=== PATIENT | female | born 1930 | race Caucasian/White ===

== ENCOUNTER 2016-11-14 11:40 | Outpatient (CLI) | payer MEDICARE | END 2016-11-14 11:41 | disposition home or self-care (01) | LOC: NAV LABSP 11:40 | PROVIDERS: ATTEND Internal Medicine Gastroenterology | DX: K51.50 Left sided colitis without complications (principal) | CPT/HCPCS: 87324; 87449 ==

== ENCOUNTER 2019-05-02 05:39 | Emergency (ER) | payer MEDICARE ==
[2019-05-02] MEDS ORDERED: Losartan Potassium 50 MG TAB ONE (06:34)
[2019-05-02 06:40] LABS: #Basophils 0.1 thou/uL (0.0-0.2); #Eosinphils 0.8 thou/uL (0.0-0.7); #Lymphocytes 1.6 thou/uL (1.20-3.40); #Monocytes 0.6 thou/uL (0.11-0.59); #Neutrophils 2.9 thou/uL (1.40-6.50); %Basophils 1.1 % (0.0-1.0); %Eosinophils 13.2 % (0.0-10.0); %Lymphocytes 26.9 % (21.0-51.0); %Monocytes 10.3 % (0.0-10.0); %Neutrophils 48.6 % (42.0-75.0); Hemoglobin 13.7 g/dL (12.0-16.0); Mean Corpuscular HGB CONC 32.6 g/dL (32.0-36.0); Mean Corpuscular Hemoglobin 30.3 pg (27.0-31.0); Mean Platelet Volume 6.8 fL (7.4-10.4); Platelet Count 306 thou/uL (130-400); RBC Distribution Width 12.4 % (11.5-14.5); Red Blood Cell (RBC) Count 4.53 mill/uL (4.20-5.40)
[2019-05-02 06:46] LABS: ALT (SGPT) 9 U/L (8-55); AST (SGOT) 12 U/L (5-34); Albumin 4.1 g/dL (3.4-4.8); Alkaline Phosphatase 78 U/L (40-110); Anion Gap 15 mmol/L (10-20); BUN (Urea Nitrogen) 15 mg/dL (9.8-20.1); Bilirubin, Total 0.3 mg/dL (0.2-1.2); Calc. Creatinine Clearance 0 mL/min (70-130); Calcium 9.3 mg/dL (7.8-10.44); Carbon Dioxide 25 mmol/L (23-31); Chloride 106 mmol/L (98-107); Estimated GFR-MDRD 65; Globulin 2.6 g/dL (2.4-3.5); Glucose 105 mg/dL (83-110); Potassium 4.1 mmol/L (3.5-5.1); Protein, Total 6.7 g/dL (6.0-8.3); Sodium 142 mmol/L (136-145)
[2019-05-02 07:26] LABS: Bilirubin Negative (Negative); Blood, Urine Negative (Negative); Clarity Clear (Clear); Glucose, Urine (Dipstick) Negative (Negative); Leukocyte Negative (Negative); Nitrite Negative (Negative); Protein, Urine (Dipstick) Negative (Neg-Trace); Urobilinogen 0.2 mg/dL (Less than 2)
--- NOTE | 2019-05-02 08:52 | CT ---
PRELIMINARY REPORT/[facility]/EMERGENCY AFTER HOURS PROCEDURE EXAM: CT Head Without Intravenous Contrast. CLINICAL HISTORY: Pt has history of stroke; patient is dizzy and has elevated blood pressure due to n ot taking her meds TECHNIQUE: Axial computed tomography images of the head/brain without intravenous contrast. COMPARISON: None provided. 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 VENTRICLES: No hydrocephalus. ORBITS: The orbits are unremarkable. SINUSES AND MASTOIDS: Significant chronic ethmoid and sphenoid sinusitis. SOFT TISSUES: No significant facial or scalp soft tissue swelling evident. No radiopaque foreign body is seen. BONES: No acute skull fracture. IMPRESSION: No acute intracranial abnormality. Significant chronic ischemic changes. No priors Chronic sinusitis ELECTRONICALLY SIGNED BY: Heron Martin M.D. May 02, 2019 7:11:56 AM [facility] FINAL REPORT EMERGENT AFTER HOURS CT OF THE BRAIN WITHOUT CONTRAST: FINDINGS/IMPRESSION: I agree with the findings and impression given in the preliminary report per [facility]. No evidence of acute intracranial abnormality. POS: TEE
== END 2019-05-02 07:59 | disposition home or self-care (01) ==
LOC: NAV ERS 05:39
DX: G45.9 Transient cerebral ischemic attack, unspecified (principal); I10 Essential (primary) hypertension; E03.9 Hypothyroidism, unspecified; E78.5 Hyperlipidemia, unspecified; E11.9 Type 2 diabetes mellitus without complications; E78.00 Pure hypercholesterolemia, unspecified; K58.9 Irritable bowel syndrome, unspecified; Z87.891 Personal history of nicotine dependence; Z79.82 Long term (current) use of aspirin; Z79.899 Other long term (current) drug therapy
CPT/HCPCS: 36416; 70450; 80053; 81003; 84484; 85025; 93005

== ENCOUNTER 2020-09-27 16:59 | Inpatient (IN) | payer OTHER, MEDICARE ==
[2020-09-27] MEDS ORDERED: HumaLOG 300 UNITS/3 ML VIAL SC PRN ×2 (20:00)
[2020-09-27] MEDS ORDERED: Dextrose 5% in Water 1,000 ML IV PRN (20:00)
[2020-09-27] MEDS ORDERED: Dextrose 50% Abboject 50 ML SYRINGE IVP PRN (20:00)
[2020-09-27] MEDS: Gabapentin 100 MG CAP PO SCH (21:06)
[2020-09-27] MEDS: Ibuprofen 200 MG TAB PO SCH (21:06)
[2020-09-27] MEDS: Sulfameth/Trimethoprim DS 800-160mg TAB PO SCH (21:06)
[2020-09-27] MEDS: Simethicone Chewable 80 MG TAB PO PRN (21:07)
[2020-09-28] MEDS: Acetaminophen 500 MG TAB PO SCH ×4 (00:25→19:09)
[2020-09-28] MEDS: traMADol HCl 50 MG TAB PO SCH ×4 (00:25→19:10)
[2020-09-28] MEDS: Ibuprofen 200 MG TAB PO SCH ×3 (03:15→15:48)
[2020-09-28] MEDS: Levothyroxine Sodium 75 MCG TAB PO SCH (05:50)
[2020-09-28 06:13] LABS: Anion Gap 16 mmol/L (10-20); BUN (Urea Nitrogen) 25 mg/dL (9.8-20.1); Calc. Creatinine Clearance 25 mL/min (70-130); Calcium 7.9 mg/dL (7.8-10.44); Carbon Dioxide 19 mmol/L (23-31); Chloride 103 mmol/L (98-107); Glucose 82 mg/dL (83-110); Potassium 4.8 mmol/L (3.5-5.1); Sodium 133 mmol/L (136-145)
[2020-09-28 06:16] LABS: #Basophils 0.1 thou/uL (0.0-0.2); #Eosinphils 0.5 thou/uL (0.0-0.7); #Lymphocytes 1.2 thou/uL (1.20-3.40); #Monocytes 1.5 thou/uL (0.11-0.59); #Neutrophils 10.2 thou/uL (1.40-6.50); %Basophils 0.6 % (0.0-1.0); %Eosinophils 3.5 % (0.0-10.0); %Lymphocytes 8.6 % (21.0-51.0); %Monocytes 11.1 % (0.0-10.0); %Neutrophils 76.3 % (42.0-75.0); Hemoglobin 9.3 g/dL (12.0-16.0); Mean Corpuscular HGB CONC 30.5 g/dL (32.0-36.0); Mean Corpuscular Hemoglobin 29.3 pg (27.0-31.0); Mean Corpuscular Volume 96.3 fL (78.0-98.0); Mean Platelet Volume 5.6 fL (7.4-10.4); Platelet Count 384 thou/uL (130-400); RBC Distribution Width 14.6 % (11.5-14.5); Red Blood Cell (RBC) Count 3.17 mill/uL (4.20-5.40); White Blood Cell (WBC) Count 13.4 thou/uL (4.8-10.8)
[2020-09-28] MEDS: metFORMIN 500 MG TAB PO SCH (09:03)
[2020-09-28] MEDS: Aspirin 81 mg Enteric Coated Tablet PO SCH (09:04)
[2020-09-28] MEDS: Gabapentin 100 MG CAP PO SCH ×3 (09:04→21:07)
[2020-09-28] MEDS: Cholecalciferol 1,000 UNITS (25 MCG) TAB PO SCH (09:04)
[2020-09-28] MEDS: Losartan Potassium 50 MG TAB PO SCH (09:05)
[2020-09-28] MEDS: Hydrochlorothiazide 25 MG TAB PO SCH (09:05)
[2020-09-28] MEDS: Sulfameth/Trimethoprim DS 800-160mg TAB PO SCH ×2 (09:06→21:07)
[2020-09-28] MEDS: sulfaSALAzine 500 MG TAB PO SCH (09:06)
[2020-09-28] MEDS: Saccharomyces boulardii 250 MG CAP PO SCH (09:06)
[2020-09-28] MEDS: traMADol HCl 50 MG TAB PO PRN (23:26)
[2020-09-28] MEDS: Simethicone Chewable 80 MG TAB PO PRN (23:28)
[2020-09-29] MEDS: Ondansetron ODT 4 MG TAB PO PRN ×2 (02:43→18:23)
[2020-09-29] MEDS: Acetaminophen 500 MG TAB PO PRN ×2 (02:44→19:41)
[2020-09-29] MEDS: Levothyroxine Sodium 75 MCG TAB PO SCH (05:48)
[2020-09-29 06:01] LABS: Anion Gap 19 mmol/L (10-20)
[2020-09-29 06:04] LABS: Mean Corpuscular HGB CONC 31.1 g/dL (32.0-36.0); Mean Corpuscular Hemoglobin 29.6 pg (27.0-31.0); Mean Platelet Volume 5.4 fL (7.4-10.4); Platelet Count 442 thou/uL (130-400); RBC Distribution Width 14.7 % (11.5-14.5); Red Blood Cell (RBC) Count 3.39 mill/uL (4.20-5.40); White Blood Cell (WBC) Count 19.6 thou/uL (4.8-10.8)
[2020-09-29 06:33] LABS: BUN (Urea Nitrogen) 36 mg/dL (9.8-20.1); Calc. Creatinine Clearance 17 mL/min (70-130); Calcium 8.3 mg/dL (7.8-10.44); Carbon Dioxide 17 mmol/L (23-31); Chloride 99 mmol/L (98-107); Glucose 148 mg/dL (83-110); Sodium 130 mmol/L (136-145)
[2020-09-29 06:42] LABS: #Basophils 0.1 thou/uL (0.0-0.2); #Eosinphils 0.1 thou/uL (0.0-0.7); #Lymphocytes 1.1 thou/uL (1.20-3.40); #Monocytes 1.4 thou/uL (0.11-0.59); #Neutrophils 16.9 thou/uL (1.40-6.50); %Basophils 0.3 % (0.0-1.0); %Eosinophils 0.7 % (0.0-10.0); %Lymphocytes 5.4 % (21.0-51.0); %Monocytes 7.1 % (0.0-10.0); %Neutrophils 86.4 % (42.0-75.0)
[2020-09-29] MEDS ORDERED: Mag-Al Plus 1200 MG/1200 MG/120 MG/30 ML UDCUP PO SCH (12:15)
[2020-09-29] MEDS ORDERED: Sodium Chloride 0.9% 1,000 ML IV SCH (12:15)
[2020-09-29] MEDS: metFORMIN 500 MG TAB PO SCH (15:32)
[2020-09-29] MEDS: Gabapentin 100 MG CAP PO SCH ×3 (15:33→21:28)
[2020-09-29] MEDS: Hydrochlorothiazide 25 MG TAB PO SCH (15:33)
[2020-09-29] MEDS: Aspirin 81 mg Enteric Coated Tablet PO SCH (15:33)
[2020-09-29] MEDS: Cholecalciferol 1,000 UNITS (25 MCG) TAB PO SCH (15:33)
[2020-09-29] MEDS: Losartan Potassium 50 MG TAB PO SCH (15:34)
[2020-09-29] MEDS: Sulfameth/Trimethoprim DS 800-160mg TAB PO SCH ×2 (15:34→21:29)
[2020-09-29] MEDS: sulfaSALAzine 500 MG TAB PO SCH (15:34)
[2020-09-29] MEDS: Saccharomyces boulardii 250 MG CAP PO SCH (15:34)
[2020-09-29] MEDS: traMADol HCl 50 MG TAB PO PRN ×2 (16:07→21:29)
[2020-09-29] MEDS: Zolpidem Tartrate 5 MG TAB PO PRN (21:29)
[2020-09-30] MEDS: Levothyroxine Sodium 75 MCG TAB PO SCH (06:19)
[2020-09-30 08:19] LABS: Anion Gap 19 mmol/L (10-20); BUN (Urea Nitrogen) 49 mg/dL (9.8-20.1); Calc. Creatinine Clearance 13 mL/min (70-130); Calcium 8.2 mg/dL (7.8-10.44); Carbon Dioxide 17 mmol/L (23-31); Chloride 100 mmol/L (98-107); Glucose 136 mg/dL (83-110); Potassium 5.6 mmol/L (3.5-5.1); Sodium 130 mmol/L (136-145)
[2020-09-30] MEDS: Acetaminophen 500 MG TAB PO PRN ×2 (08:54→16:00)
[2020-09-30] MEDS: Saccharomyces boulardii 250 MG CAP PO SCH (09:02)
[2020-09-30] MEDS: Cholecalciferol 1,000 UNITS (25 MCG) TAB PO SCH (09:02)
[2020-09-30] MEDS: Aspirin 81 mg Enteric Coated Tablet PO SCH (09:02)
[2020-09-30] MEDS: traMADol HCl 50 MG TAB PO PRN ×2 (09:03→15:59)
[2020-09-30 09:11] LABS: Hemoglobin 10.5 g/dL (12.0-16.0); Mean Corpuscular HGB CONC 31.6 g/dL (32.0-36.0); Mean Corpuscular Volume 94.9 fL (78.0-98.0); RBC Distribution Width 14.6 % (11.5-14.5); White Blood Cell (WBC) Count 23.6 thou/uL (4.8-10.8)
[2020-09-30 09:12] LABS: #Neutrophils 20.4 thou/uL (1.40-6.50); %Lymphocytes 4.4 % (21.0-51.0); %Neutrophils 86.3 % (42.0-75.0); Manual Diff?? YES; Mean Platelet Volume 5.4 fL (7.4-10.4); Platelet Count 469 thou/uL (130-400)
[2020-09-30 09:13] LABS: #Basophils 0.1 thou/uL (0.0-0.2); #Monocytes 2.1 thou/uL (0.11-0.59)
[2020-09-30] MEDS: Sulfameth/Trimethoprim DS 800-160mg TAB PO SCH ×2 (09:27→21:15)
[2020-09-30] MEDS: Gabapentin 100 MG CAP PO SCH (09:27)
[2020-09-30] MEDS: Losartan Potassium 50 MG TAB PO SCH (09:28)
[2020-09-30] MEDS: metFORMIN 500 MG TAB PO SCH (09:28)
[2020-09-30] MEDS: sulfaSALAzine 500 MG TAB PO SCH (09:28)
[2020-09-30] MEDS: Hydrochlorothiazide 25 MG TAB PO SCH (09:29)
[2020-09-30 10:12] LABS: Band 4 % (5-11); Lymphocytes 7 % (21-51); MDiff Complete? YES; Monocytes 8 % (0-10); Neutrophil 81 % (42-75); Platelet Morphology Comment Appears Increased
[2020-09-30] MEDS: Ondansetron ODT 4 MG TAB PO PRN (13:02)
[2020-09-30] MEDS: Sodium Chloride 0.9% 1,000 ML IV SCH (15:06)
[2020-09-30] MEDS: Pantoprazole 40 MG VIAL IVP SCH (21:15)
[2020-09-30] MEDS: Sucralfate 1 GM TAB PO SCH (21:15)
[2020-10-01] MEDS: Sodium Chloride 0.9% 1,000 ML IV SCH ×2 (01:22→11:47)
[2020-10-01] MEDS: Levothyroxine Sodium 75 MCG TAB PO SCH (05:37)
[2020-10-01 06:13] VITALS: BMI 30.1
[2020-10-01] MEDS: Acetaminophen 500 MG TAB PO PRN ×2 (06:36→20:36)
[2020-10-01] MEDS: traMADol HCl 50 MG TAB PO PRN ×2 (06:37→20:38)
[2020-10-01] MEDS: Saccharomyces boulardii 250 MG CAP PO SCH (09:58)
[2020-10-01] MEDS: Cholecalciferol 1,000 UNITS (25 MCG) TAB PO SCH (09:59)
[2020-10-01] MEDS: sulfaSALAzine 500 MG TAB PO SCH (09:59)
[2020-10-01] MEDS: Sulfameth/Trimethoprim DS 800-160mg TAB PO SCH ×2 (10:00→20:36)
[2020-10-01] MEDS: Losartan Potassium 50 MG TAB PO SCH (10:00)
[2020-10-01] MEDS: Sucralfate 1 GM TAB PO SCH ×2 (10:00→20:36)
[2020-10-01] MEDS: Gabapentin 100 MG CAP PO SCH (10:01)
[2020-10-01] MEDS: Pantoprazole 40 MG VIAL IVP SCH ×2 (10:01→20:36)
[2020-10-01 10:02] LABS: Anion Gap 16 mmol/L (10-20); BUN (Urea Nitrogen) 62 mg/dL (9.8-20.1); Calc. Creatinine Clearance 12 mL/min (70-130); Calcium 7.6 mg/dL (7.8-10.44); Carbon Dioxide 17 mmol/L (23-31); Chloride 102 mmol/L (98-107); Glucose 98 mg/dL (83-110); Potassium 5.6 mmol/L (3.5-5.1); Sodium 129 mmol/L (136-145)
[2020-10-01] MEDS: Aspirin 81 mg Enteric Coated Tablet PO SCH (10:04)
[2020-10-01 10:18] LABS: Hemoglobin 8.5 g/dL (12.0-16.0); Mean Corpuscular HGB CONC 31.2 g/dL (32.0-36.0); Mean Corpuscular Hemoglobin 30.3 pg (27.0-31.0); Mean Corpuscular Volume 97.1 fL (78.0-98.0); Mean Platelet Volume 5.3 fL (7.4-10.4); Platelet Count 432 thou/uL (130-400); RBC Distribution Width 15.8 % (11.5-14.5); White Blood Cell (WBC) Count 24.3 thou/uL (4.8-10.8)
[2020-10-01 10:24] LABS: Band 3 % (5-11); Lymphocytes 4 % (21-51); MDiff Complete? YES; Monocytes 3 % (0-10); Neutrophil 90 % (42-75); Platelet Morphology Comment Appears Increased
[2020-10-01] MEDS ORDERED: Dextrose 5 % And 0.9 % NaCl 1,000 ML IV SCH (13:30)
[2020-10-01] MEDS ORDERED: Ventolin HFA Inhaler 60 PUFF INHALER INH PRN (20:41)
[2020-10-01] MEDS ORDERED: Furosemide 20 MG/2 ML VIAL SLOW IVP SCH (20:45)
[2020-10-01] MEDS: Zolpidem Tartrate 5 MG TAB PO PRN (21:28)
[2020-10-02] MEDS: Levothyroxine Sodium 75 MCG TAB PO SCH (05:25)
[2020-10-02] MEDS: Acetaminophen 500 MG TAB PO PRN (05:26)
[2020-10-02] MEDS: traMADol HCl 50 MG TAB PO PRN ×2 (05:28→21:40)
[2020-10-02 07:54] LABS: #Basophils 0.1 thou/uL (0.0-0.2); #Eosinphils 0.2 thou/uL (0.0-0.7); #Lymphocytes 0.8 thou/uL (1.20-3.40); #Monocytes 1.2 thou/uL (0.11-0.59); #Neutrophils 12.4 thou/uL (1.40-6.50); %Basophils 0.5 % (0.0-1.0); %Eosinophils 1.1 % (0.0-10.0); %Lymphocytes 5.4 % (21.0-51.0); %Monocytes 8.3 % (0.0-10.0); %Neutrophils 84.8 % (42.0-75.0); Hemoglobin 7.9 g/dL (12.0-16.0); Mean Corpuscular HGB CONC 30.6 g/dL (32.0-36.0); Mean Corpuscular Hemoglobin 29.3 pg (27.0-31.0); Mean Corpuscular Volume 95.9 fL (78.0-98.0); Mean Platelet Volume 5.1 fL (7.4-10.4); Platelet Count 390 thou/uL (130-400); RBC Distribution Width 15.7 % (11.5-14.5); Red Blood Cell (RBC) Count 2.71 mill/uL (4.20-5.40); White Blood Cell (WBC) Count 14.6 thou/uL (4.8-10.8)
[2020-10-02 07:56] LABS: Anion Gap 13 mmol/L (10-20)
[2020-10-02 07:58] LABS: Calc. Creatinine Clearance 27 mL/min (70-130)
[2020-10-02 07:59] LABS: BUN (Urea Nitrogen) 42 mg/dL (9.8-20.1); Calcium 7.8 mg/dL (7.8-10.44); Carbon Dioxide 18 mmol/L (23-31); Chloride 107 mmol/L (98-107); Glucose 103 mg/dL (83-110); Potassium 4.9 mmol/L (3.5-5.1); Sodium 133 mmol/L (136-145)
[2020-10-02] MEDS: Cholecalciferol 1,000 UNITS (25 MCG) TAB PO SCH (09:36)
[2020-10-02] MEDS: Gabapentin 100 MG CAP PO SCH (09:36)
[2020-10-02] MEDS: Aspirin 81 mg Enteric Coated Tablet PO SCH (09:36)
[2020-10-02] MEDS: Pantoprazole 40 MG VIAL IVP SCH ×2 (09:37→21:42)
[2020-10-02] MEDS: Losartan Potassium 50 MG TAB PO SCH (09:37)
[2020-10-02] MEDS: Saccharomyces boulardii 250 MG CAP PO SCH (09:38)
[2020-10-02] MEDS: Sulfameth/Trimethoprim DS 800-160mg TAB PO SCH ×2 (09:38→21:40)
[2020-10-02] MEDS: sulfaSALAzine 500 MG TAB PO SCH (09:38)
[2020-10-02] MEDS: Sucralfate 1 GM TAB PO SCH ×2 (09:38→21:40)
[2020-10-02] MEDS ORDERED: Sodium Chloride 0.9% 1,000 ML IV SCH (22:15)
[2020-10-02] MEDS ORDERED: Nystatin 500,000 UNITS/5 ML UDCUP SSW SCH ×2 (22:30→23:59)
[2020-10-02] MEDS: Zolpidem Tartrate 5 MG TAB PO PRN (22:52)
[2020-10-03] MEDS: Levothyroxine Sodium 75 MCG TAB PO SCH (05:29)
[2020-10-03] MEDS: Nystatin 500,000 UNITS/5 ML UDCUP SSW SCH ×2 (05:29→13:10)
[2020-10-03 07:52] LABS: #Basophils 0.1 thou/uL (0.0-0.2); #Eosinphils 0.1 thou/uL (0.0-0.7); #Lymphocytes 1.5 thou/uL (1.20-3.40); #Monocytes 1.3 thou/uL (0.11-0.59); #Neutrophils 13.9 thou/uL (1.40-6.50); %Basophils 0.8 % (0.0-1.0); %Eosinophils 0.8 % (0.0-10.0); %Lymphocytes 8.9 % (21.0-51.0); %Monocytes 7.8 % (0.0-10.0); %Neutrophils 81.7 % (42.0-75.0); Mean Corpuscular Hemoglobin 30.2 pg (27.0-31.0); Mean Platelet Volume 5.3 fL (7.4-10.4); Platelet Count 418 thou/uL (130-400); RBC Distribution Width 15.6 % (11.5-14.5); Red Blood Cell (RBC) Count 1.97 mill/uL (4.20-5.40)
[2020-10-03 08:04] LABS: Anion Gap 13 mmol/L (10-20); BUN (Urea Nitrogen) 43 mg/dL (9.8-20.1); Calc. Creatinine Clearance 54 mL/min (70-130); Calcium 7.6 mg/dL (7.8-10.44); Carbon Dioxide 19 mmol/L (23-31); Chloride 109 mmol/L (98-107); Glucose 152 mg/dL (83-110); Sodium 136 mmol/L (136-145)
[2020-10-03] MEDS: Cholecalciferol 1,000 UNITS (25 MCG) TAB PO SCH (09:11)
[2020-10-03] MEDS: Gabapentin 100 MG CAP PO SCH (09:11)
[2020-10-03] MEDS: Aspirin 81 mg Enteric Coated Tablet PO SCH (09:11)
[2020-10-03] MEDS: Losartan Potassium 50 MG TAB PO SCH (09:12)
[2020-10-03] MEDS: Saccharomyces boulardii 250 MG CAP PO SCH (09:13)
[2020-10-03] MEDS: Sulfameth/Trimethoprim DS 800-160mg TAB PO SCH (09:13)
[2020-10-03] MEDS: sulfaSALAzine 500 MG TAB PO SCH (09:13)
[2020-10-03] MEDS: Pantoprazole 40 MG VIAL IVP SCH (09:13)
[2020-10-03] MEDS: Sucralfate 1 GM TAB PO SCH (09:13)
[2020-10-03 14:11] VITALS: BP 107/65; TEMP 97.6
== END 2020-10-03 14:10 | disposition home or self-care (01) | DRG 560 ==
LOC: NAV ACUTE 19:13
PROVIDERS: ADMIT Family Medicine; ATTEND Family Medicine
DX: S22.49XD Multiple fractures of ribs, unspecified side, subsequent encounter for fracture with routine healing (principal); N17.9 Acute kidney failure, unspecified; E87.1 Hypo-osmolality and hyponatremia; K51.90 Ulcerative colitis, unspecified, without complications; R33.9 Retention of urine, unspecified; E87.5 Hyperkalemia; R13.10 Dysphagia, unspecified; E11.9 Type 2 diabetes mellitus without complications; D64.9 Anemia, unspecified; D72.829 Elevated white blood cell count, unspecified; R53.1 Weakness; E03.9 Hypothyroidism, unspecified; R09.89 Other specified symptoms and signs involving the circulatory and respiratory systems; I10 Essential (primary) hypertension; K21.9 Gastro-esophageal reflux disease without esophagitis; S30.1XXD Contusion of abdominal wall, subsequent encounter; S22.20XD Unspecified fracture of sternum, subsequent encounter for fracture with routine healing; V89.2XXD Person injured in unspecified motor-vehicle accident, traffic, subsequent encounter; Z79.82 Long term (current) use of aspirin; Z79.84 Long term (current) use of oral hypoglycemic drugs; Z79.899 Other long term (current) drug therapy; Z90.710 Acquired absence of both cervix and uterus; Z90.89 Acquired absence of other organs; Z98.890 Other specified postprocedural states
CPT/HCPCS: 36415; 36416; 36430; 71045; 80048; 85025; 86850; 86900; 86901; 87086; 94640; C9113; J1940; J7042; J7050; J7620; P9016; Q0162

== ENCOUNTER 2020-10-11 18:09 | Inpatient (IN) | payer MEDICARE ==
[2020-10-11] MEDS ORDERED: Nystatin 500,000 UNITS/5 ML UDCUP SSW PRN (19:51)
[2020-10-11] MEDS ORDERED: Ondansetron ODT 4 MG TAB PO PRN (19:52)
[2020-10-11] MEDS ORDERED: Simethicone Chewable 80 MG TAB PO PRN (19:53)
[2020-10-11] MEDS ORDERED: Zolpidem Tartrate 5 MG TAB PO PRN (19:53)
[2020-10-11] MEDS ORDERED: traMADol HCl 50 MG TAB PO PRN (19:53)
[2020-10-11] MEDS ORDERED: Dextrose 50% Abboject 50 ML SYRINGE IVP PRN ×2 (20:00→21:15)
[2020-10-11] MEDS ORDERED: Dextrose 5% in Water 1,000 ML IV PRN ×2 (20:00→21:15)
[2020-10-11] MEDS: Sucralfate 1 GM TAB PO SCH (20:37)
[2020-10-11] MEDS: Amiodarone 200 MG TAB PO SCH (20:37)
[2020-10-11] MEDS ORDERED: MESALAMINE 800 MG PO SCH (21:00)
[2020-10-11] MEDS ORDERED: HumaLOG 300 UNITS/3 ML VIAL SC PRN (21:15)
[2020-10-11] MEDS: Melatonin 3 MG TAB PO PRN (21:55)
[2020-10-11] MEDS: MESALAMINE 400 MG PO SCH (22:22)
[2020-10-11] MEDS: MESALAMINE 1000 MG PR SCH (22:23)
[2020-10-12] MEDS: Acetaminophen 500 MG TAB PO SCH ×5 (01:29→23:20)
[2020-10-12] MEDS: Levothyroxine Sodium 100 MCG TAB PO SCH (05:28)
[2020-10-12 08:08] LABS: #Basophils 0.1 thou/uL (0.0-0.2); #Eosinphils 0.2 thou/uL (0.0-0.7); #Lymphocytes 1.8 thou/uL (1.20-3.40); #Monocytes 0.8 thou/uL (0.11-0.59); #Neutrophils 3.9 thou/uL (1.40-6.50); %Basophils 1.4 % (0.0-1.0); %Eosinophils 3.3 % (0.0-10.0); %Lymphocytes 26.3 % (21.0-51.0); %Monocytes 11.7 % (0.0-10.0); %Neutrophils 57.3 % (42.0-75.0); Hemoglobin 8.6 g/dL (12.0-16.0); Mean Corpuscular HGB CONC 29.1 g/dL (32.0-36.0); Mean Corpuscular Hemoglobin 28.7 pg (27.0-31.0); Mean Corpuscular Volume 98.6 fL (78.0-98.0); Mean Platelet Volume 5.2 fL (7.4-10.4); Platelet Count 445 thou/uL (130-400); RBC Distribution Width 18.1 % (11.5-14.5); Red Blood Cell (RBC) Count 2.98 mill/uL (4.20-5.40); White Blood Cell (WBC) Count 6.7 thou/uL (4.8-10.8)
[2020-10-12 08:18] LABS: ALT (SGPT) 7 U/L (8-55); AST (SGOT) 12 U/L (5-34); Albumin 2.7 g/dL (3.4-4.8); Alkaline Phosphatase 99 U/L (40-110); Anion Gap 13 mmol/L (10-20); BUN (Urea Nitrogen) 15 mg/dL (9.8-20.1); Bilirubin, Total 0.6 mg/dL (0.2-1.2); Calc. Creatinine Clearance 60 mL/min (70-130); Calcium 7.9 mg/dL (7.8-10.44); Carbon Dioxide 24 mmol/L (23-31); Chloride 109 mmol/L (98-107); Globulin 2.7 g/dL (2.4-3.5); Glucose 104 mg/dL (83-110); Potassium 3.7 mmol/L (3.5-5.1); Protein, Total 5.4 g/dL (5.8-8.1); Sodium 142 mmol/L (136-145)
[2020-10-12] MEDS: Amlodipine 5 MG TAB PO SCH (08:35)
[2020-10-12] MEDS: Amiodarone 200 MG TAB PO SCH ×2 (08:35→20:45)
[2020-10-12] MEDS: Cholecalciferol 1,000 UNITS (25 MCG) TAB PO SCH (08:36)
[2020-10-12] MEDS: Aspirin 81 mg Enteric Coated Tablet PO SCH (08:36)
[2020-10-12] MEDS: MESALAMINE 400 MG PO SCH ×2 (08:37→15:29)
[2020-10-12] MEDS: Lidocaine 5% Patch TD SCH (08:37)
[2020-10-12] MEDS: Losartan Potassium 50 MG TAB PO SCH (08:37)
[2020-10-12] MEDS: Furosemide 20 MG TAB PO SCH (08:37)
[2020-10-12] MEDS: Sucralfate 1 GM TAB PO SCH ×2 (08:38→20:45)
[2020-10-12] MEDS: MESALAMINE 1000 MG PR SCH (08:38)
[2020-10-12] MEDS: Saccharomyces boulardii 250 MG CAP PO SCH (08:38)
[2020-10-12] MEDS ORDERED: sulfaSALAzine 500 MG TAB PO SCH (09:00)
[2020-10-12] MEDS ORDERED: MESALAMINE 1000 MG PR SCH (15:30)
[2020-10-12] MEDS ORDERED: Sodium Chloride 0.65% Nasal 44 ML BOT EA NARE PRN (16:21)
[2020-10-12] MEDS ORDERED: Calcium Carbonate 500 MG ChewTAB PO PRN (16:21)
[2020-10-12] MEDS ORDERED: Benzonatate 100 MG CAP PO PRN (16:21)
[2020-10-12] MEDS ORDERED: Bisacodyl 10 MG SUPP PR PRN (16:21)
[2020-10-12] MEDS ORDERED: cloNIDine 0.1 MG TAB PO PRN (16:21)
[2020-10-12] MEDS ORDERED: Cepastat Lozenges 1 LOZ PO PRN (16:21)
[2020-10-12] MEDS ORDERED: Bisacodyl 5 MG TAB PO PRN (16:21)
[2020-10-12] MEDS ORDERED: Senokot S 8.6-50 MG TAB PO PRN (16:21)
[2020-10-12] MEDS ORDERED: Loperamide HCl 2 MG CAP PO PRN ×2 (16:21)
[2020-10-12] MEDS: Mesalamine DR 400 mg Capsule PO SCH (20:43)
[2020-10-12] MEDS: Mesalamine 1000 MG Suppository PR SCH (20:44)
[2020-10-12] MEDS: LIDOCAINE Patch Removal TOP SCH (20:46)
[2020-10-12] MEDS ORDERED: MESALAMINE 800 MG PO SCH (21:00)
[2020-10-12] MEDS: Melatonin 3 MG TAB PO PRN (21:36)
[2020-10-13] MEDS: Acetaminophen 500 MG TAB PO SCH ×4 (05:11→23:05)
[2020-10-13] MEDS: Levothyroxine Sodium 100 MCG TAB PO SCH (05:12)
[2020-10-13] MEDS: Lidocaine 5% Patch TD SCH (08:51)
[2020-10-13] MEDS: Saccharomyces boulardii 250 MG CAP PO SCH (08:51)
[2020-10-13] MEDS: Cholecalciferol 1,000 UNITS (25 MCG) TAB PO SCH (08:51)
[2020-10-13] MEDS: Sucralfate 1 GM TAB PO SCH ×2 (08:52→20:30)
[2020-10-13] MEDS: Amlodipine 5 MG TAB PO SCH (08:52)
[2020-10-13] MEDS: Aspirin 81 mg Enteric Coated Tablet PO SCH (08:52)
[2020-10-13] MEDS: Amiodarone 200 MG TAB PO SCH ×2 (08:52→20:30)
[2020-10-13] MEDS: Losartan Potassium 50 MG TAB PO SCH (08:52)
[2020-10-13] MEDS: Furosemide 20 MG TAB PO SCH (08:52)
[2020-10-13] MEDS: Mesalamine 1000 MG Suppository PR SCH ×2 (08:53→20:27)
[2020-10-13] MEDS: Mesalamine DR 400 mg Capsule PO SCH ×3 (08:53→20:29)
[2020-10-13] MEDS: Melatonin 3 MG TAB PO PRN (20:29)
[2020-10-13] MEDS: LIDOCAINE Patch Removal TOP SCH (20:30)
[2020-10-14] MEDS: Acetaminophen 500 MG TAB PO SCH ×4 (05:50→22:50)
[2020-10-14] MEDS: Levothyroxine Sodium 100 MCG TAB PO SCH (05:51)
[2020-10-14 05:55] LABS: #Basophils 0.1 thou/uL (0.0-0.2); #Eosinphils 0.2 thou/uL (0.0-0.7); #Lymphocytes 2.1 thou/uL (1.20-3.40); #Monocytes 0.7 thou/uL (0.11-0.59); #Neutrophils 2.9 thou/uL (1.40-6.50); %Basophils 0.9 % (0.0-1.0); %Eosinophils 2.6 % (0.0-10.0); %Lymphocytes 35.8 % (21.0-51.0); %Neutrophils 48.7 % (42.0-75.0); Anisocytosis SLIGHT = 6-15 cells (100X) (0-5/hpf); Hemoglobin 8.6 g/dL (12.0-16.0); Hypochromia SLIGHT = 6-15 cells (100X) (0-5/hpf); MDiff Complete? YES; Mean Corpuscular HGB CONC 28.2 g/dL (32.0-36.0); Mean Corpuscular Hemoglobin 27.8 pg (27.0-31.0); Mean Corpuscular Volume 98.6 fL (78.0-98.0); Mean Platelet Volume 5.4 fL (7.4-10.4); Microcytosis SLIGHT = 6-15 cells (100X) (0-5/hpf); Platelet Count 427 thou/uL (130-400); Platelet Morphology Comment Appears Adequate; Polychromasia SLIGHT = 2-3 cells (100X) (0-2/hpf); RBC Distribution Width 18.2 % (11.5-14.5); Red Blood Cell (RBC) Count 3.08 mill/uL (4.20-5.40); White Blood Cell (WBC) Count 5.9 thou/uL (4.8-10.8)
[2020-10-14 05:56] LABS: Anion Gap 11 mmol/L (10-20); BUN (Urea Nitrogen) 19 mg/dL (9.8-20.1); Calc. Creatinine Clearance 57 mL/min (70-130); Calcium 7.9 mg/dL (7.8-10.44); Carbon Dioxide 25 mmol/L (23-31); Chloride 109 mmol/L (98-107); Glucose 102 mg/dL (83-110); Potassium 3.4 mmol/L (3.5-5.1); Sodium 142 mmol/L (136-145)
[2020-10-14] MEDS: Sucralfate 1 GM TAB PO SCH ×2 (09:33→20:52)
[2020-10-14] MEDS: Lidocaine 5% Patch TD SCH (09:33)
[2020-10-14] MEDS: Mesalamine DR 400 mg Capsule PO SCH ×3 (09:33→20:52)
[2020-10-14] MEDS: Losartan Potassium 50 MG TAB PO SCH (09:33)
[2020-10-14] MEDS: Amiodarone 200 MG TAB PO SCH ×2 (09:34→20:52)
[2020-10-14] MEDS: Aspirin 81 mg Enteric Coated Tablet PO SCH (09:34)
[2020-10-14] MEDS: Amlodipine 5 MG TAB PO SCH (09:34)
[2020-10-14] MEDS: Cholecalciferol 1,000 UNITS (25 MCG) TAB PO SCH (09:34)
[2020-10-14] MEDS: Mesalamine 1000 MG Suppository PR SCH ×2 (09:34→20:51)
[2020-10-14] MEDS: Furosemide 20 MG TAB PO SCH (09:34)
[2020-10-14] MEDS: Saccharomyces boulardii 250 MG CAP PO SCH (09:41)
[2020-10-14] MEDS: HumaLOG 300 UNITS/3 ML VIAL SC PRN (11:43)
[2020-10-14] MEDS: Melatonin 3 MG TAB PO PRN (20:52)
[2020-10-14] MEDS: LIDOCAINE Patch Removal TOP SCH (20:52)
[2020-10-15] MEDS: Levothyroxine Sodium 100 MCG TAB PO SCH (05:25)
[2020-10-15] MEDS: Acetaminophen 500 MG TAB PO SCH ×3 (05:26→16:39)
[2020-10-15] MEDS: Lidocaine 5% Patch TD SCH (09:19)
[2020-10-15] MEDS: Cholecalciferol 1,000 UNITS (25 MCG) TAB PO SCH (09:20)
[2020-10-15] MEDS: Saccharomyces boulardii 250 MG CAP PO SCH (09:20)
[2020-10-15] MEDS: Mesalamine DR 400 mg Capsule PO SCH ×3 (09:20→20:56)
[2020-10-15] MEDS: Amlodipine 5 MG TAB PO SCH (09:20)
[2020-10-15] MEDS: Losartan Potassium 50 MG TAB PO SCH (09:20)
[2020-10-15] MEDS: Sucralfate 1 GM TAB PO SCH ×2 (09:20→20:57)
[2020-10-15] MEDS: Aspirin 81 mg Enteric Coated Tablet PO SCH (09:21)
[2020-10-15] MEDS: Furosemide 20 MG TAB PO SCH (09:21)
[2020-10-15] MEDS: Mesalamine 1000 MG Suppository PR SCH ×2 (09:21→20:56)
[2020-10-15] MEDS: Amiodarone 200 MG TAB PO SCH ×2 (09:21→20:57)
[2020-10-15] MEDS: HumaLOG 300 UNITS/3 ML VIAL SC PRN (12:19)
[2020-10-15] MEDS: Melatonin 3 MG TAB PO PRN (20:56)
[2020-10-15] MEDS: LIDOCAINE Patch Removal TOP SCH (20:57)
[2020-10-16] MEDS: Levothyroxine Sodium 100 MCG TAB PO SCH (06:03)
[2020-10-16] MEDS: Acetaminophen 500 MG TAB PO SCH ×4 (06:04→18:05)
[2020-10-16] MEDS: Amlodipine 5 MG TAB PO SCH (09:46)
[2020-10-16] MEDS: Cholecalciferol 1,000 UNITS (25 MCG) TAB PO SCH (09:46)
[2020-10-16] MEDS: Aspirin 81 mg Enteric Coated Tablet PO SCH (09:46)
[2020-10-16] MEDS: Amiodarone 200 MG TAB PO SCH ×2 (09:46→20:13)
[2020-10-16] MEDS: Lidocaine 5% Patch TD SCH (09:47)
[2020-10-16] MEDS: Furosemide 20 MG TAB PO SCH (09:47)
[2020-10-16] MEDS: Losartan Potassium 50 MG TAB PO SCH (09:47)
[2020-10-16] MEDS: Mesalamine DR 400 mg Capsule PO SCH ×3 (09:47→20:13)
[2020-10-16] MEDS: Saccharomyces boulardii 250 MG CAP PO SCH (09:48)
[2020-10-16] MEDS: Sucralfate 1 GM TAB PO SCH ×2 (09:48→20:14)
[2020-10-16] MEDS: Mesalamine 1000 MG Suppository PR SCH ×2 (09:48→20:13)
[2020-10-16] MEDS: LIDOCAINE Patch Removal TOP SCH (20:14)
[2020-10-16] MEDS: Melatonin 3 MG TAB PO PRN (20:14)
[2020-10-17] MEDS: Acetaminophen 500 MG TAB PO SCH ×5 (01:43→23:16)
[2020-10-17] MEDS: Levothyroxine Sodium 100 MCG TAB PO SCH (05:41)
[2020-10-17] MEDS: Aspirin 81 mg Enteric Coated Tablet PO SCH (09:03)
[2020-10-17] MEDS: Cholecalciferol 1,000 UNITS (25 MCG) TAB PO SCH (09:03)
[2020-10-17] MEDS: Amiodarone 200 MG TAB PO SCH ×2 (09:03→20:24)
[2020-10-17] MEDS: Amlodipine 5 MG TAB PO SCH (09:03)
[2020-10-17] MEDS: Furosemide 20 MG TAB PO SCH (09:04)
[2020-10-17] MEDS: Losartan Potassium 50 MG TAB PO SCH (09:04)
[2020-10-17] MEDS: Lidocaine 5% Patch TD SCH (09:04)
[2020-10-17] MEDS: Mesalamine 1000 MG Suppository PR SCH ×2 (09:05→20:26)
[2020-10-17] MEDS: Saccharomyces boulardii 250 MG CAP PO SCH (09:05)
[2020-10-17] MEDS: Mesalamine DR 400 mg Capsule PO SCH ×3 (09:05→20:26)
[2020-10-17] MEDS: Sucralfate 1 GM TAB PO SCH ×2 (09:05→20:24)
[2020-10-17] MEDS: Artificial Tear Sol 15 ML BOT EA EYE SCH ×2 (15:26→20:23)
[2020-10-17] MEDS: LIDOCAINE Patch Removal TOP SCH (20:26)
[2020-10-18] MEDS: Acetaminophen 500 MG TAB PO SCH ×4 (05:53→23:17)
[2020-10-18] MEDS: Levothyroxine Sodium 100 MCG TAB PO SCH (05:54)
[2020-10-18] MEDS: Aspirin 81 mg Enteric Coated Tablet PO SCH (08:43)
[2020-10-18] MEDS: Saccharomyces boulardii 250 MG CAP PO SCH (08:43)
[2020-10-18] MEDS: Sucralfate 1 GM TAB PO SCH ×2 (08:43→20:31)
[2020-10-18] MEDS: Amiodarone 200 MG TAB PO SCH ×2 (08:44→20:31)
[2020-10-18] MEDS: Amlodipine 5 MG TAB PO SCH (08:44)
[2020-10-18] MEDS: Furosemide 20 MG TAB PO SCH (08:44)
[2020-10-18] MEDS: Losartan Potassium 50 MG TAB PO SCH (08:44)
[2020-10-18] MEDS: Cholecalciferol 1,000 UNITS (25 MCG) TAB PO SCH (08:45)
[2020-10-18] MEDS: Lidocaine 5% Patch TD SCH (08:46)
[2020-10-18] MEDS: Artificial Tear Sol 15 ML BOT EA EYE SCH ×3 (08:46→20:30)
[2020-10-18] MEDS: Mesalamine 1000 MG Suppository PR SCH ×2 (08:47→20:33)
[2020-10-18] MEDS: Mesalamine DR 400 mg Capsule PO SCH ×3 (08:47→20:30)
[2020-10-18] MEDS: Melatonin 3 MG TAB PO PRN (20:31)
[2020-10-18] MEDS: LIDOCAINE Patch Removal TOP SCH (20:35)
[2020-10-19] MEDS: Acetaminophen 500 MG TAB PO SCH ×3 (05:10→17:17)
[2020-10-19] MEDS: Levothyroxine Sodium 100 MCG TAB PO SCH (05:11)
[2020-10-19] MEDS: Furosemide 20 MG TAB PO SCH (09:18)
[2020-10-19] MEDS: Sucralfate 1 GM TAB PO SCH ×2 (09:18→21:50)
[2020-10-19] MEDS: Amiodarone 200 MG TAB PO SCH ×2 (09:19→21:51)
[2020-10-19] MEDS: Aspirin 81 mg Enteric Coated Tablet PO SCH (09:19)
[2020-10-19] MEDS: Losartan Potassium 50 MG TAB PO SCH (09:19)
[2020-10-19] MEDS: Cholecalciferol 1,000 UNITS (25 MCG) TAB PO SCH (09:19)
[2020-10-19] MEDS: Saccharomyces boulardii 250 MG CAP PO SCH (09:20)
[2020-10-19] MEDS: Amlodipine 5 MG TAB PO SCH (09:20)
[2020-10-19] MEDS: Artificial Tear Sol 15 ML BOT EA EYE SCH ×3 (09:21→21:50)
[2020-10-19] MEDS: Lidocaine 5% Patch TD SCH (09:23)
[2020-10-19] MEDS: Mesalamine 1000 MG Suppository PR SCH ×2 (09:24→21:51)
[2020-10-19] MEDS: Mesalamine DR 400 mg Capsule PO SCH ×3 (09:25→21:51)
[2020-10-19] MEDS: Melatonin 3 MG TAB PO PRN (21:50)
[2020-10-19] MEDS: LIDOCAINE Patch Removal TOP SCH (22:38)
[2020-10-20] MEDS: Acetaminophen 500 MG TAB PO SCH ×5 (01:00→23:38)
[2020-10-20] MEDS: Levothyroxine Sodium 100 MCG TAB PO SCH (05:46)
[2020-10-20] MEDS: Lidocaine 5% Patch TD SCH (11:55)
[2020-10-20] MEDS: Artificial Tear Sol 15 ML BOT EA EYE SCH ×3 (11:55→21:29)
[2020-10-20] MEDS: Losartan Potassium 50 MG TAB PO SCH (11:55)
[2020-10-20] MEDS: Amlodipine 5 MG TAB PO SCH (11:55)
[2020-10-20] MEDS: Aspirin 81 mg Enteric Coated Tablet PO SCH (11:55)
[2020-10-20] MEDS: Cholecalciferol 1,000 UNITS (25 MCG) TAB PO SCH (11:55)
[2020-10-20] MEDS: Amiodarone 200 MG TAB PO SCH ×2 (11:55→21:29)
[2020-10-20] MEDS: Furosemide 20 MG TAB PO SCH (11:55)
[2020-10-20] MEDS: Saccharomyces boulardii 250 MG CAP PO SCH (11:56)
[2020-10-20] MEDS: Mesalamine DR 400 mg Capsule PO SCH ×3 (11:56→22:01)
[2020-10-20] MEDS: Mesalamine 1000 MG Suppository PR SCH ×2 (11:56→21:29)
[2020-10-20] MEDS: Sucralfate 1 GM TAB PO SCH ×2 (11:56→21:28)
[2020-10-20] MEDS: HumaLOG 300 UNITS/3 ML VIAL SC PRN (17:55)
[2020-10-20] MEDS: LIDOCAINE Patch Removal TOP SCH (21:29)
[2020-10-20] MEDS: Melatonin 3 MG TAB PO PRN (21:31)
[2020-10-21] MEDS: Levothyroxine Sodium 100 MCG TAB PO SCH (05:59)
[2020-10-21] MEDS: Acetaminophen 500 MG TAB PO SCH ×4 (05:59→23:31)
[2020-10-21] MEDS: Amiodarone 200 MG TAB PO SCH ×2 (08:22→21:07)
[2020-10-21] MEDS: Amlodipine 5 MG TAB PO SCH (08:22)
[2020-10-21] MEDS: Cholecalciferol 1,000 UNITS (25 MCG) TAB PO SCH (08:23)
[2020-10-21] MEDS: Aspirin 81 mg Enteric Coated Tablet PO SCH (08:23)
[2020-10-21] MEDS: Artificial Tear Sol 15 ML BOT EA EYE SCH ×3 (08:23→21:08)
[2020-10-21] MEDS: Lidocaine 5% Patch TD SCH (08:24)
[2020-10-21] MEDS: Furosemide 20 MG TAB PO SCH (08:24)
[2020-10-21] MEDS: Mesalamine DR 400 mg Capsule PO SCH ×3 (08:25→21:07)
[2020-10-21] MEDS: Losartan Potassium 50 MG TAB PO SCH (08:25)
[2020-10-21] MEDS: Mesalamine 1000 MG Suppository PR SCH ×2 (08:26→21:09)
[2020-10-21] MEDS: Saccharomyces boulardii 250 MG CAP PO SCH (08:26)
[2020-10-21] MEDS: Sucralfate 1 GM TAB PO SCH ×2 (08:26→21:07)
[2020-10-21] MEDS: LIDOCAINE Patch Removal TOP SCH (21:09)
[2020-10-21] MEDS: Melatonin 3 MG TAB PO PRN (21:33)
[2020-10-22] MEDS: Acetaminophen 500 MG TAB PO SCH ×4 (05:48→23:51)
[2020-10-22] MEDS: Levothyroxine Sodium 100 MCG TAB PO SCH (05:49)
[2020-10-22 06:16] VITALS: BMI 26.4
[2020-10-22] MEDS: Amlodipine 5 MG TAB PO SCH (08:39)
[2020-10-22] MEDS: Cholecalciferol 1,000 UNITS (25 MCG) TAB PO SCH (08:40)
[2020-10-22] MEDS: Artificial Tear Sol 15 ML BOT EA EYE SCH ×3 (08:40→21:17)
[2020-10-22] MEDS: Aspirin 81 mg Enteric Coated Tablet PO SCH (08:40)
[2020-10-22] MEDS: Furosemide 20 MG TAB PO SCH (08:40)
[2020-10-22] MEDS: Mesalamine DR 400 mg Capsule PO SCH ×3 (08:41→21:18)
[2020-10-22] MEDS: Lidocaine 5% Patch TD SCH (08:41)
[2020-10-22] MEDS: Losartan Potassium 50 MG TAB PO SCH (08:41)
[2020-10-22] MEDS: Sucralfate 1 GM TAB PO SCH ×2 (08:42→21:12)
[2020-10-22] MEDS: Saccharomyces boulardii 250 MG CAP PO SCH (08:42)
[2020-10-22] MEDS: Mesalamine 1000 MG Suppository PR SCH ×2 (08:42→21:17)
[2020-10-22] MEDS: Amiodarone 200 MG TAB PO SCH ×2 (08:44→21:12)
[2020-10-22] MEDS: Melatonin 3 MG TAB PO PRN (21:10)
[2020-10-22] MEDS: LIDOCAINE Patch Removal TOP SCH (21:19)
[2020-10-23] MEDS: Acetaminophen 500 MG TAB PO SCH ×4 (05:24→23:43)
[2020-10-23] MEDS: Levothyroxine Sodium 100 MCG TAB PO SCH (05:24)
[2020-10-23] MEDS: Lidocaine 5% Patch TD SCH (08:18)
[2020-10-23] MEDS: Amlodipine 5 MG TAB PO SCH (08:19)
[2020-10-23] MEDS: Artificial Tear Sol 15 ML BOT EA EYE SCH ×3 (08:19→21:02)
[2020-10-23] MEDS: Saccharomyces boulardii 250 MG CAP PO SCH (08:19)
[2020-10-23] MEDS: Sucralfate 1 GM TAB PO SCH ×2 (08:19→21:02)
[2020-10-23] MEDS: Aspirin 81 mg Enteric Coated Tablet PO SCH (08:19)
[2020-10-23] MEDS: Cholecalciferol 1,000 UNITS (25 MCG) TAB PO SCH (08:19)
[2020-10-23] MEDS: Losartan Potassium 50 MG TAB PO SCH (08:20)
[2020-10-23] MEDS: Amiodarone 200 MG TAB PO SCH ×2 (08:20→21:02)
[2020-10-23] MEDS: Furosemide 20 MG TAB PO SCH (08:20)
[2020-10-23] MEDS: Mesalamine 1000 MG Suppository PR SCH ×2 (08:21→21:03)
[2020-10-23] MEDS: Mesalamine DR 400 mg Capsule PO SCH ×3 (08:21→21:02)
[2020-10-23] MEDS: Melatonin 3 MG TAB PO PRN (21:02)
[2020-10-23] MEDS: LIDOCAINE Patch Removal TOP SCH (21:03)
[2020-10-24] MEDS: Levothyroxine Sodium 100 MCG TAB PO SCH (06:03)
[2020-10-24] MEDS: Acetaminophen 500 MG TAB PO SCH ×4 (06:03→23:49)
[2020-10-24] MEDS: Cholecalciferol 1,000 UNITS (25 MCG) TAB PO SCH (10:04)
[2020-10-24] MEDS: Artificial Tear Sol 15 ML BOT EA EYE SCH ×3 (10:04→22:01)
[2020-10-24] MEDS: Sucralfate 1 GM TAB PO SCH ×2 (10:04→21:54)
[2020-10-24] MEDS: Lidocaine 5% Patch TD SCH (10:04)
[2020-10-24] MEDS: Furosemide 20 MG TAB PO SCH (10:05)
[2020-10-24] MEDS: Amlodipine 5 MG TAB PO SCH (10:05)
[2020-10-24] MEDS: Losartan Potassium 50 MG TAB PO SCH (10:05)
[2020-10-24] MEDS: Saccharomyces boulardii 250 MG CAP PO SCH (10:05)
[2020-10-24] MEDS: Aspirin 81 mg Enteric Coated Tablet PO SCH (10:05)
[2020-10-24] MEDS: Mesalamine 1000 MG Suppository PR SCH ×2 (10:06→21:55)
[2020-10-24] MEDS: Mesalamine DR 400 mg Capsule PO SCH ×3 (10:06→21:53)
[2020-10-24] MEDS: Amiodarone 200 MG TAB PO SCH ×2 (10:06→21:54)
[2020-10-24] MEDS: Melatonin 3 MG TAB PO PRN (21:54)
[2020-10-24] MEDS: LIDOCAINE Patch Removal TOP SCH (21:55)
[2020-10-25] MEDS: Levothyroxine Sodium 100 MCG TAB PO SCH (05:41)
[2020-10-25] MEDS: Acetaminophen 500 MG TAB PO SCH ×4 (05:41→23:26)
[2020-10-25] MEDS: Artificial Tear Sol 15 ML BOT EA EYE SCH ×3 (10:00→21:29)
[2020-10-25] MEDS: Mesalamine DR 400 mg Capsule PO SCH ×3 (10:00→21:29)
[2020-10-25] MEDS: Lidocaine 5% Patch TD SCH (10:00)
[2020-10-25] MEDS: Losartan Potassium 50 MG TAB PO SCH (10:01)
[2020-10-25] MEDS: Sucralfate 1 GM TAB PO SCH ×2 (10:01→21:30)
[2020-10-25] MEDS: Furosemide 20 MG TAB PO SCH (10:01)
[2020-10-25] MEDS: Aspirin 81 mg Enteric Coated Tablet PO SCH (10:01)
[2020-10-25] MEDS: Amiodarone 200 MG TAB PO SCH (10:02)
[2020-10-25] MEDS: Amlodipine 5 MG TAB PO SCH (10:02)
[2020-10-25] MEDS: Cholecalciferol 1,000 UNITS (25 MCG) TAB PO SCH (10:02)
[2020-10-25] MEDS: Saccharomyces boulardii 250 MG CAP PO SCH (10:03)
[2020-10-25] MEDS: Mesalamine 1000 MG Suppository PR SCH ×2 (10:03→21:31)
[2020-10-25] MEDS: LIDOCAINE Patch Removal TOP SCH (21:31)
[2020-10-25] MEDS: Melatonin 3 MG TAB PO PRN (23:26)
[2020-10-26] MEDS: Levothyroxine Sodium 100 MCG TAB PO SCH (06:10)
[2020-10-26] MEDS: Acetaminophen 500 MG TAB PO SCH ×4 (06:10→23:16)
[2020-10-26] MEDS: Mesalamine DR 400 mg Capsule PO SCH ×3 (09:05→20:32)
[2020-10-26] MEDS: Aspirin 81 mg Enteric Coated Tablet PO SCH (09:06)
[2020-10-26] MEDS: Saccharomyces boulardii 250 MG CAP PO SCH (09:06)
[2020-10-26] MEDS: Cholecalciferol 1,000 UNITS (25 MCG) TAB PO SCH (09:06)
[2020-10-26] MEDS: Losartan Potassium 50 MG TAB PO SCH (09:06)
[2020-10-26] MEDS: Amiodarone 200 MG TAB PO SCH (09:07)
[2020-10-26] MEDS: Furosemide 20 MG TAB PO SCH (09:07)
[2020-10-26] MEDS: Sucralfate 1 GM TAB PO SCH ×2 (09:07→20:32)
[2020-10-26] MEDS: Amlodipine 5 MG TAB PO SCH (09:07)
[2020-10-26] MEDS: Lidocaine 5% Patch TD SCH (09:08)
[2020-10-26] MEDS: Artificial Tear Sol 15 ML BOT EA EYE SCH ×3 (09:08→20:32)
[2020-10-26] MEDS: Mesalamine 1000 MG Suppository PR SCH ×2 (09:08→20:32)
[2020-10-26] MEDS: Sodium Chloride 0.9% 250 ML 250 ML IVPB SCH ×2 (16:56→17:43)
[2020-10-26] MEDS: LIDOCAINE Patch Removal TOP SCH (20:33)
[2020-10-26] MEDS: Melatonin 3 MG TAB PO PRN (20:39)
[2020-10-26 23:20] LABS: Bilirubin Negative (Negative); Blood, Urine Negative (Negative); Glucose, Urine (Dipstick) Negative (Negative); Ketone, Urine Negative (Negative); Leukocyte Moderate (Negative); Nitrite Positive (Negative); Protein, Urine (Dipstick) Negative (Neg-Trace); Urobilinogen 0.2 mg/dL (Less than 2)
[2020-10-26 23:21] LABS: Clarity Hazy (Clear)
[2020-10-26 23:22] LABS: WBC/HPF 21-50 HPF (0-3)
[2020-10-26 23:23] LABS: Bacteria/HPF 2+ HPF (None Seen); Squamous Epithelial 0-3 HPF (0-3)
[2020-10-27] MEDS: Acetaminophen 500 MG TAB PO SCH ×2 (05:27→12:47)
[2020-10-27] MEDS: Levothyroxine Sodium 100 MCG TAB PO SCH (05:27)
[2020-10-27] MEDS: Amlodipine 5 MG TAB PO SCH (08:50)
[2020-10-27] MEDS: Aspirin 81 mg Enteric Coated Tablet PO SCH (08:50)
[2020-10-27] MEDS: Furosemide 20 MG TAB PO SCH (08:51)
[2020-10-27] MEDS: Saccharomyces boulardii 250 MG CAP PO SCH (08:51)
[2020-10-27] MEDS: Mesalamine DR 400 mg Capsule PO SCH (08:51)
[2020-10-27] MEDS: Losartan Potassium 50 MG TAB PO SCH (08:51)
[2020-10-27] MEDS: Amiodarone 200 MG TAB PO SCH (08:52)
[2020-10-27] MEDS: Cholecalciferol 1,000 UNITS (25 MCG) TAB PO SCH (08:52)
[2020-10-27] MEDS: Mesalamine 1000 MG Suppository PR SCH (08:52)
[2020-10-27] MEDS: Sucralfate 1 GM TAB PO SCH (08:53)
[2020-10-27] MEDS: Artificial Tear Sol 15 ML BOT EA EYE SCH (08:53)
[2020-10-27] MEDS: Lidocaine 5% Patch TD SCH (08:53)
[2020-10-27 09:59] VITALS: BP 157/79; TEMP 98
[2020-10-27] MEDS ORDERED: Sulfameth/Trimethoprim DS 800-160mg TAB PO SCH ×2 (12:15→21:00)
[2020-10-27] MEDS ORDERED: Ciprofloxacin 500 MG TAB PO SCH (20:00)
== END 2020-10-27 13:30 | disposition home or self-care (01) | DRG 560 ==
LOC: NAV ACUTE 18:21
PROVIDERS: ADMIT Family Medicine; ATTEND Family Medicine
DX: S22.49XD Multiple fractures of ribs, unspecified side, subsequent encounter for fracture with routine healing (principal); K51.90 Ulcerative colitis, unspecified, without complications; N17.9 Acute kidney failure, unspecified; I82.411 Acute embolism and thrombosis of right femoral vein; I50.32 Chronic diastolic (congestive) heart failure; R53.1 Weakness; R53.81 Other malaise; E11.9 Type 2 diabetes mellitus without complications; E03.9 Hypothyroidism, unspecified; S30.1XXD Contusion of abdominal wall, subsequent encounter; K20.80 Other esophagitis without bleeding; D64.9 Anemia, unspecified; S22.20XD Unspecified fracture of sternum, subsequent encounter for fracture with routine healing; I11.0 Hypertensive heart disease with heart failure; I72.8 Aneurysm of other specified arteries; I48.91 Unspecified atrial fibrillation; E88.09 Other disorders of plasma-protein metabolism, not elsewhere classified; R33.9 Retention of urine, unspecified; Z79.82 Long term (current) use of aspirin; Z90.89 Acquired absence of other organs; Z98.890 Other specified postprocedural states; Z87.891 Personal history of nicotine dependence; Z79.899 Other long term (current) drug therapy
CPT/HCPCS: 36416; 80048; 80053; 81001; 85025; 87086; 87186; 97602; J1815; J7050

== ENCOUNTER 2020-11-22 14:17 | Emergency (ER) | payer MEDICARE ==
[~2020-11-22 14:17] MED LIST: Iopamidol 370 76% 100 ML VIAL ONE
[2020-11-22 14:57] LABS: #Basophils 0.1 thou/uL (0.0-0.2); #Eosinphils 0.5 thou/uL (0.0-0.7); #Lymphocytes 1.6 thou/uL (1.20-3.40); #Monocytes 0.6 thou/uL (0.11-0.59); #Neutrophils 5.9 thou/uL (1.40-6.50); %Basophils 1.4 % (0.0-1.0); %Eosinophils 5.7 % (0.0-10.0); %Monocytes 6.7 % (0.0-10.0); %Neutrophils 68.2 % (42.0-75.0); Hemoglobin 13.1 g/dL (12.0-16.0); Mean Corpuscular HGB CONC 30.7 g/dL (32.0-36.0); Mean Corpuscular Hemoglobin 29.5 pg (27.0-31.0); Mean Corpuscular Volume 95.9 fL (78.0-98.0); Mean Platelet Volume 5.7 fL (7.4-10.4); Platelet Count 411 thou/uL (130-400); RBC Distribution Width 14.8 % (11.5-14.5); Red Blood Cell (RBC) Count 4.44 mill/uL (4.20-5.40); White Blood Cell (WBC) Count 8.7 thou/uL (4.8-10.8)
[2020-11-22 15:34] LABS: Bilirubin Negative (Negative); Blood, Urine Trace (Negative); Clarity Hazy (Clear); Glucose, Urine (Dipstick) Negative (Negative); Ketone, Urine Negative (Negative); Leukocyte Moderate (Negative); Nitrite Positive (Negative); Protein, Urine (Dipstick) 30 mg/dL (Neg-Trace); Specific Gravity, Urine 1.025 (1.005-1.030); Urobilinogen 0.2 mg/dL (Less than 2); pH, Urine 6.5 (5.0-9.0)
[2020-11-22 15:38] LABS: Bacteria/HPF 4+ HPF (None Seen); Renal Epithelial 0-3 HPF (None Seen); Squamous Epithelial 0-3 HPF (0-3); WBC/HPF Greater Than 50 HPF (0-3)
[2020-11-22] MEDS ORDERED: Ondansetron PF 4 MG/2 ML Vial ONE (15:49)
[2020-11-22] MEDS ORDERED: Fentanyl 100 MCG/2 ML VIAL ONE (15:49)
[2020-11-22] MEDS ORDERED: Ketorolac Tromethamine 30 MG/ML VIAL ONE (15:49)
[2020-11-22 15:55] LABS: ALT (SGPT) Less than 6 U/L (8-55); AST (SGOT) 8 U/L (5-34); Albumin 3.5 g/dL (3.4-4.8); Alkaline Phosphatase 98 U/L (40-110); Anion Gap 12 mmol/L (10-20); BUN (Urea Nitrogen) 11 mg/dL (9.8-20.1); Bilirubin, Total 0.2 mg/dL (0.2-1.2); Calc. Creatinine Clearance 0 mL/min (70-130); Calcium 8.9 mg/dL (7.8-10.44); Carbon Dioxide 25 mmol/L (23-31); Chloride 105 mmol/L (98-107); Glucose 184 mg/dL (83-110); Potassium 4.2 mmol/L (3.5-5.1); Protein, Total 6.5 g/dL (5.8-8.1); Sodium 138 mmol/L (136-145)
[2020-11-22] MEDS ORDERED: cefTRIAXone\\ROCEPHIN 1 GM VIAL ONE (16:30)
[2020-11-22] MEDS ORDERED: Sodium Chloride 0.9% 100 ML ONE (16:31)
== END 2020-11-22 17:22 | disposition short-term general hospital (02) ==
LOC: NAV ERS 14:17
DX: J90 Pleural effusion, not elsewhere classified (principal); S22.49XD Multiple fractures of ribs, unspecified side, subsequent encounter for fracture with routine healing; N39.0 Urinary tract infection, site not specified; E11.9 Type 2 diabetes mellitus without complications; E78.5 Hyperlipidemia, unspecified; E78.00 Pure hypercholesterolemia, unspecified; I10 Essential (primary) hypertension; Z86.73 Personal history of transient ischemic attack (TIA), and cerebral infarction without residual deficits; Z87.891 Personal history of nicotine dependence
CPT/HCPCS: 36415; 71045; 71275; 80053; 81003; 81015; 83605; 83880; 84484; 85025; 87077; 87086; 87186; 93005; 96374; J0696; J1885; J2405; J3010; J3490; Q9967